=== PATIENT | female | born 1965 | race Caucasian/White ===

== ENCOUNTER 2016-10-25 13:30 | Emergency (ER) | payer MEDICAID ==
[~2016-10-25] VITALS: Ht 154.9 cm; Wt 55.5 kg
[2016-10-25 13:34] VITALS: Ht 154.9 cm; Wt 55.5 kg
[2016-10-25] MEDS ORDERED: SOD CHLORIDE 0.9% 500 ML IV STA (14:49)
[2016-10-25] MEDS ORDERED: AMLO5TAB4 PO (15:08)
[2016-10-25] MEDS ORDERED: CHOL200073 PO (15:09)
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
[2016-10-25 15:18] LABS: BASOPHILS % 0.2 % (0.0-2.0); HEMATOCRIT 42.7 % (37.0-47.0); HEMOGLOBIN 14.5 g/dl (12.0-16.0); LYMPHOCYTES % 8.1 % (15.0-51.0); MEAN CORPUSCULAR HEMOGLOBIN 30.1 pg (29.0-33.0); MEAN CORPUSCULAR VOLUME 88.8 fl (82.0-101.0); MEAN PLATELET VOLUME 11.7 fl (7.4-10.4); MONOCYTE # 0.5 10^3/ul (0.3-0.9); MONOCYTES % 3.8 % (0.0-11.0); NEUTROPHIL # 11.1 10^3/ul (1.6-7.5); NEUTROPHILS % 87.3 % (39.0-77.0); PLATELET COUNT 300 10^3/UL (140-415); RED BLOOD COUNT 4.81 10^6/ul (4.20-5.40); WHITE BLOOD COUNT 12.7 10^3/ul (4.8-10.8)
--- NOTE | 2016-10-25 15:29 | RADRPT ---
PROCEDURE: CT Brain without contrast. CLINICAL INDICATION: Headache TECHNIQUE: A CT of the brain was performed on a multidetector CT scanner utilizing axial sections from the skull base through the vertex without contrast. Images were reviewed on a high-resolution [employer] workstation. Exam CTDI = 44.9 mGy and the DLP = 630.20 mGy-cm. One or more of the following dose reduction techniques were used: Automated exposure control Adjustment of the mA and/or kV according to patient size. Use of iterative reconstruction technique. COMPARISON: None available FINDINGS: There is no evidence of intracranial hemorrhage, mass effect or midline shift. There is approximatel y 3.4 x 3.5 x 3.2 cm calcified extra-axial mass along the left anterior falx most consistent with a calcified meningioma. There is extensive encephalomalacia involving the right frontal, temporal, an d parietal lobes extending into the lateral aspect of the left basal ganglia in keeping with MCA dis tribution chronic infarct. There is ex vacuo dilatation of the left lateral ventricle. No abnormal intra-axial or extra-axial fluid collections are seen. The density of the brain is normal and the g ray/white matter differentiation is well preserved. The osseous structures are unremarkable. Frot hy secretions are seen in the left sphenoid sinus.. Vascular calcifications are identified. IMPRESSION: 1. No intracranial hemorrhage, mass effect or midline shift. 2. Extensive encephalomalacia involving the lateral aspect of the left cerebral hemisphere in keepi ng with left MCA distribution chronic infarct. 3. Approximately 3.4 x 3.5 cm left parafalcine calcified meningioma. 4. Intracranial atherosclerosis. RPTAT: BB .Dejan Lackey MD, MD Date Time Electronically viewed and signed by .Dejan Lackey MD, MD on 10/25/2016 15:29 .O/
[2016-10-25 15:37] LABS: ALANINE AMINOTRANSFERASE 25 IU/L (13-69); ALBUMIN 4.6 g/dl (3.3-4.9); ALKALINE PHOSPHATASE 110 IU/L (42-121); ANION GAP 22 (8-16); ASPARTATE AMINO TRANSFERASE 21 IU/L (15-46); BILIRUBIN,INDIRECT 0.4 mg/dl (0-1.1); BILIRUBIN,TOTAL 0.4 mg/dl (0.2-1.3); BLOOD UREA NITROGEN 12 mg/dl (7-20); CALCIUM 10.2 mg/dl (8.4-10.2); CARBON DIOXIDE 28 mmol/L (21-31); CHLORIDE 101 mmol/L (97-110); CREATININE 0.47 mg/dl (0.44-1.00); GLUCOSE 119 mg/dl (70-220); POTASSIUM 3.7 mmol/L (3.5-5.1); SODIUM 147 mmol/L (135-144); TOTAL PROTEIN 9.7 g/dl (6.1-8.1)
--- NOTE | 2016-10-25 15:50 | RADRPT ---
PROCEDURE: XR Chest. CLINICAL INDICATION: Abdominal pain, sepsis TECHNIQUE: Single frontal view of the chest was obtained COMPARISON: None FINDINGS: The heart and mediastinum are within normal limits. There are mild bibasilar atelectatic changes. The lungs are otherwise clear. There is no pleural effusion or pneumothorax. RPTAT: AA IMPRESSION: Mild bibasilar atelectatic changes. .Sathish Gann MD, MD Date Time Electronically viewed and signed by .Sathish Gann MD, on 10/25/2016 15:50 .S/
[2016-10-25 16:12] LABS: TROPONIN-I < 0.012 ng/ml (0.00-0.12)
[2016-10-25 17:10] LABS: ADD UMIC YES; UR ASCORBIC ACID NEGATIVE (NEGATIVE); UR BILIRUBIN (Dip) NEGATIVE (NEGATIVE); UR BLOOD (Dip) 1+ mg/dL (NEGATIVE); UR CLARITY SLIGHTLY CLOUDY (CLEAR); UR COLOR STRAW (YELLOW); UR GLUCOSE (Dip) NEGATIVE (NEGATIVE); UR KETONES (Dip) NEGATIVE (NEGATIVE); UR LEUKOCYTE ESTERASE (Dip) TRACE Leu/ul (NEGATIVE); UR NITRITE (Dip) NEGATIVE (NEGATIVE); UR RBC 4 /HPF (0-5); UR SPECIFIC GRAVITY (Dip) 1.008 (1.003-1.030); UR SQUAMOUS EPITHELIAL CELL FEW /HPF (FEW); UR TOTAL PROTEIN (Dip) NEGATIVE (NEGATIVE); UR UROBILINOGEN (Dip) NEGATIVE (NEGATIVE)
[2016-10-25] MEDS ORDERED: CEPH-443 PO (17:21)
[2016-10-25 17:32] VITALS: BP 143/84; PULSE 89; RESP 20; TEMP 98
== END 2016-10-25 17:52 | disposition home or self-care (01) ==
LOC: E/R 13:30
DX: R51 Headache (principal); N30.00 Acute cystitis without hematuria; I10 Essential (primary) hypertension; E11.9 Type 2 diabetes mellitus without complications
CPT/HCPCS: 70450; 71010; 80053; 81001; 83690; 84484; 85025; 93005; J7040; 36415